=== PATIENT | female | born 1985 | race African-American/Black ===

== ENCOUNTER 2022-07-11 14:31 | Emergency (ER) | payer OTHER, SELFPAY ==
[2022-07-11 14:43] VITALS: BP 132/90; PULSE 123; RESP 16; TEMP 37.2; O2SAT 99
--- NOTE | 2022-07-11 14:57 | ED.GENADULT ---
HPI - General Adult General Chief complaint: Upper Respiratory Infection Stated complaint: Sinus/Sore Throat Source: patient Mode of arrival: ambulatory Limitations: no limitations History of Present Illness HPI narrative: Patient presents for evaluation of sick symptoms. She indicates last Sunday she had symptoms consistent with a common cold. She did have some sinus congestion, which has persisted, but improved. Yesterday she developed a sore throat which has progressively worsened. Her children both have sinus symptoms at the present time. No fever, chills, nausea, vomiting, diarrhea, shortness of breath. She has an occasional dry cough. She is taking Tylenol for symptoms. She does not smoke. She had COVID in January 2021. No additional complaints or concerns. Related Data Home Medications Medication Instructions Recorded Confirmed lisinopril 10 mg tablet 10 mg PO DAILY 07/11/22 07/11/22 vits no.126-ferrous fum tablet 07/11/22 28 mg iron-folic acid 800 mcg tablet (Classic ) Allergies Allergy/AdvReac Type Severity Reaction Status Date / Time iodine Allergy Anaphylaxis Verified 09/27/21 11:19 tree nut Allergy Itching Verified 07/11/22 14:43 Review of Systems Review of Systems: CONSTITUTIONAL: Denies fever, chills, or sweats. EYES: Denies visual changes, redness, or discharge. ENT: Reports sinus congestion and sore throat. Denies rhinorrhea or otalgia. CARDIOVASCULAR: Denies chest pain, palpitations, or edema. RESPIRATORY: Reports cough. Denies SOB GASTROINTESTINAL: Denies abdominal pain, nausea, vomiting, or diarrhea. GENITOURINARY: Denies dysuria or hematuria. SKIN: Denies rash or itching. MUSCULOSKELETAL: Denies back pain, joint pain, or myalgia. NEUROLOGIC: Denies headache, numbness, dizziness, or weakness. PSYCHIATRIC: Denies anxiety or depression. [facility] Past Medical History Medical History (Updated 07/11/22 @ 15:21 by ALO Vazquez, ALICE) Allergies Anxiety delivery delivered Surgical History Surgical History History of Family History Family History Father Hypertension Cancer of duodenum Mother Hypertension Lupus Sibling Depression Anxiety Grandparent Anxiety Depression Breast cancer Malignant neoplasm of prostate Social History Social History Smoking status: Never smoker Alcohol intake: never Substance use: never Living arrangements: with family Gender identity (if verbalized by the patient): Female Sexual Orientation (if Verbalized by the Patient): Straight or Heterosexual Spiritual care concerns: No Exam Narrative: GENERAL: Well-appearing, well-nourished, and in no acute distress. HEAD: Normocephalic, atraumatic. EYES: PERRLA and EOMI. ENT: Nares clear, no rhinorrhea or epistaxis. Mucous membranes moist. Mild posterior pharyngeal erythema without exudate. Uvula is midline. Bilateral TMs pearly resendiz nonbulging NECK: Supple. No adenopathy or masses. No carotid bruits or JVD CHEST: Clear to auscultation. No respiratory distress. No wheezes rales or rhonchi HEART: Regular rate and rhythm. No murmur heard. Normal peripheral pulses. ABDOMEN: Soft, nontender, nondistended, normal active bowel sounds. EXTREMITIES: Normal range of motion. No edema. SKIN: Warm, dry, no rash. NEURO: No focal deficits. Alert and oriented x3. PSYCH: Normal mood and affect. Course Course Emergency Course: This is a 37-year-old female who presented for evaluation of sick symptoms. COVID and strep were negative. Exam is consistent with viral URI. Zmrb-ghb-gbdqeck agents for symptom management. Follow with primary provider. Increase hydration. Go to the ER for worsening symptoms. Patient in agreement with plan of care
[2022-07-11 15:23] VITALS: PULSE 103
== END 2022-07-11 15:23 | disposition home or self-care (01) ==
PROVIDERS: Emergency Provider Nurse Practitioner
DX: J06.9 Acute upper respiratory infection, unspecified (principal); Z20.822 Contact with and (suspected) exposure to COVID-19; Z86.16 Personal history of COVID-19
CPT/HCPCS: 87081; 87147; 87426; 87880; 99213; C9803; G0463

== ENCOUNTER 2022-07-12 08:00 | Emergency (ER) | payer OTHER, SELFPAY ==
[2022-07-12 08:18] VITALS: BP 144/113; PULSE 136; RESP 16; TEMP 36.8; O2SAT 100
--- NOTE | 2022-07-12 08:38 | ED.URI ---
HPI - URI/Sore Throat General Chief Complaint: Upper Respiratory Infection Stated Complaint: SORE THROAT/HEADACHE/FEVER/NASAL CONGESTION Time Seen by Provider: 07/12/22 08:20 Source: patient Mode of arrival: ambulatory Limitations: no limitations History of Present Illness HPI Narrative: 37-year-old female presents with complaint of sore throat, fatigue, fever, nausea for the past 2-3 days. Was seen yesterday at [facility] and had a negative COVID and strep test. Patient states she is positive that she has strep as per throat has never hurt this bad before. Patient's is mostly talking for her due to her throat pain. All systems reviewed and negative except as noted above. Related Data Home Medications Medication Instructions Recorded Confirmed lisinopril 10 mg tablet 10 mg PO DAILY 07/11/22 07/11/22 vits no.126-ferrous fum tablet 07/11/22 28 mg iron-folic acid 800 mcg tablet (Classic ) Allergies Allergy/AdvReac Type Severity Reaction Status Date / Time iodine Allergy Anaphylaxis Verified 09/27/21 11:19 tree nut Allergy Itching Verified 07/11/22 14:43 Review of Systems Review of Systems: CONSTITUTIONAL: Reports fatigue, fever, chills, or sweats. EYES: Denies visual changes, redness, or discharge. ENT: Denies rhinorrhea, congestion. Reports sore throat. Denies otalgia. CARDIOVASCULAR: Denies chest pain, palpitations, or edema. RESPIRATORY: Denies cough or dyspnea. GASTROINTESTINAL: Denies abdominal pain, nausea, vomiting, or diarrhea. GENITOURINARY: Denies dysuria or hematuria. SKIN: Denies rash or itching. MUSCULOSKELETAL: Denies back pain, joint pain, or myalgia. NEUROLOGIC: Denies headache, numbness, or weakness. PSYCHIATRIC: Denies anxiety or depression. All other systems reviewed are negative, except as documented in HPI. [facility] Past Medical History Medical History (Updated 07/12/22 @ 08:43 by Sheba Delcid NP) Allergies Anxiety delivery delivered Surgical History Surgical History History of Family History Family History Father Hypertension Cancer of duodenum Mother Hypertension Lupus Sibling Depression Anxiety Grandparent Anxiety Depression Breast cancer Malignant neoplasm of prostate Social History Social History (Reviewed 07/11/22 @ 15:02 by Jose Eduardo Lewis, [facility], ) Smoking status: Never smoker Alcohol intake: never Substance use: never Living arrangements: with family Gender identity (if verbalized by the patient): Female Sexual Orientation (if Verbalized by the Patient): Straight or Heterosexual Spiritual care concerns: No Comments At time of signature, agree with nursing past medical, surgical, social and family history. There is no relevant family history pertinent to the presenting complaint. Exam Narrative: GENERAL: This is a well-nourished, well-developed patient, in no apparent distress. HEAD: normocephalic, atraumatic. EYES: PERRL. Sclera clear/white. Vision is grossly intact. EARS: External ears normal, auditory canals clear and without drainage, TMs normal without perforation. Hearing grossly intact. NOSE: External nose normal with no obvious nasal discharge, nares without redness, no rhinorrhea. THROAT: Mucous membranes moist, posterior pharynx erythematous and swollen. Uvula enlarged. tonsils 1+ bilaterally with exudates. NECK: Neck supple, tender with anterior cervical lymphadenopathy bilaterally. No masses or thyromegaly. CARDIOVASCULAR: Regular rate and rhythm without murmurs, gallops, or rubs. RESPIRATORY: Clear to auscultation. Breath sounds equal bilaterally. No wheezes, rales, or rhonchi. SKIN: warm, Dry, intact with no suspicious lesions or rash, good texture and turgor. NEURO: awake, alert, and oriented to person, place and time. Ther
== END 2022-07-12 08:36 | disposition home or self-care (01) ==
PROVIDERS: Emergency Provider Nurse Practitioner Family
DX: J02.0 Streptococcal pharyngitis (principal); I10 Essential (primary) hypertension
CPT/HCPCS: 87804; 87880; 99213; G0463

== ENCOUNTER 2022-11-16 11:29 | Emergency (ER) | payer OTHER, SELFPAY ==
--- NOTE | 2022-11-16 11:40 | ED.EYEPROB ---
HPI - Eye Problem General Chief complaint: Eye Problems Stated complaint: EYE REDNESS Source: patient Mode of arrival: ambulatory Limitations: no limitations History of Present Illness HPI Narrative: 37 y/o female presented for c/o bilateral eye swelling, redness, pain and drainage. States her was diagnosed with pink eye yesterday. Reports feeling itching to the eyes yesterday, and by the night she had bilateral eye pain for which she took ibuprofen. States the eyes were matted shut this morning with large amount of thick green drainage. Patient provided pictures. Patient also reports nasal congestion, body aches, and mild sore throat. States she had covid in September. chief complaint: eye pain Related Data Home Medications Medication Instructions Recorded Confirmed escitalopram oxalate 10 mg tablet 10 mg PO DAILY 07/12/22 11/16/22 Allergies Allergy/AdvReac Type Severity Reaction Status Date / Time iodine Allergy Anaphylaxis Verified 11/16/22 11:36 tree nut Allergy Itching Verified 11/16/22 11:36 Review of Systems Review of Systems: CONSTITUTIONAL: Reports body aches, denies fever, chills EYES:Endorses swelling, redness and pain to eyes; denies FB sensation, photophobia, visual changes ENT: Reports rhinorrhea, congestion, sore throat CARDIOVASCULAR: Denies chest pain, palpitations RESPIRATORY: Denies cough or dyspnea. GASTROINTESTINAL: Denies abdominal pain, nausea, vomiting, or diarrhea. SKIN: Denies rash, itching, or wounds. MUSCULOSKELETAL: Denies back pain, joint pain, or myalgia. NEUROLOGIC: Denies headache, numbness, tingling, or weakness. All systems reviewed & are unremarkable except as noted in HPI and below PMFSH Past Medical History Medical History Allergies Anxiety delivery delivered Surgical History Surgical History History of Family History Family History Father Hypertension Cancer of duodenum Mother Hypertension Lupus Sibling Depression Anxiety Grandparent Anxiety Depression Breast cancer Malignant neoplasm of prostate Social History Social History Smoking status: Never smoker Alcohol intake: never Substance use: never Living arrangements: with family Gender identity (if verbalized by the patient): Female Sexual Orientation (if Verbalized by the Patient): Straight or Heterosexual Spiritual care concerns: No Comments At time of signature, I have reviewed and agree with nursing past medical, surgical, social and family history unless otherwise noted. Please see nursing chart for further information. There is no relevant family history pertinent to the presenting complaint Exam Narrative: GENERAL: Well-appearing HEAD: Normocephalic, atraumatic. EYES: severe bilateral conjunctival injection, moderate upper eye lid swelling L>R, bilateral purulent drainage; PERRLA, EOMI. Lid eversion shows no FB. ENT: Mucous membranes pink and moist. No rhinorrhea. TMs normal bilaterally. Throat normal. Uvula midline. CHEST: Clear to auscultation. HEART: Tachycardic Regular rhythm. ABDOMEN: Soft, nontender, nondistended SKIN: Warm, dry, no rash. Normal skin turgor. NEURO: No focal deficits. Alert and oriented x3 PSYCH: Normal affect. Course Course Emergency Course: Patient is aware of diagnosis, understands and agrees to treatment plan. Anticipatory guidance given. Patient agrees to follow-up as directed and is aware of reasons to seek care at the emergency department. Portions of this record may have been created with voice recognition software Level of Care: Express Care Visit Vital Signs Vital signs: Vital Signs Temperature 98 F 11/16/22 11:46 Pulse Rate 109 H 11/16/22 11:46 Resp
[2022-11-16 11:46] VITALS: BP 113/75; PULSE 109; RESP 16; TEMP 36.6; O2SAT 99
== END 2022-11-16 12:18 | disposition home or self-care (01) ==
PROVIDERS: Emergency Provider Nurse Practitioner Family; PCP Internal Medicine
DX: H10.9 Unspecified conjunctivitis (principal)
CPT/HCPCS: 87081; 87804; 87880; 99203; G0463

== ENCOUNTER 2022-11-27 08:22 | Emergency (ER) | payer OTHER, SELFPAY ==
--- NOTE | 2022-11-27 08:27 | ED.URI ---
HPI - URI/Sore Throat General Chief Complaint: Upper Respiratory Infection Stated Complaint: Cold Symptoms Time Seen by Provider: 11/27/22 08:28 Source: patient Mode of arrival: ambulatory Limitations: no limitations History of Present Illness HPI Narrative: Nicholas is a 37-year-old female patient presenting to the clinic today with complaints of cough and runny nose x 1 week. She reports she has been waking up with the sore throat but this has improved throughout the day. Having a lot nasal drainage going the back of her throat. Does have some yellow nasal drainage times otherwise is clear. MD elicited complaint: sore throat and nasal congestion Related Data Home Medications Medication Instructions Recorded Confirmed escitalopram oxalate 10 mg tablet 10 mg PO DAILY 07/12/22 11/27/22 Allergies Allergy/AdvReac Type Severity Reaction Status Date / Time iodine Allergy Anaphylaxis Verified 11/27/22 08:30 tree nut Allergy Itching Verified 11/27/22 08:30 Review of Systems Review of Systems: Pertinent positives per HPI. Patient denies any fever, chills, rash, headache, visual changes, dizziness, cough, shortness of breath, chest pain, palpitations, nausea, vomiting, diarrhea, constipation, abdominal pain, or any urinary issues. [facility] Past Medical History Medical History Allergies Anxiety delivery delivered Surgical History Surgical History History of Family History Family History Father Hypertension Cancer of duodenum Mother Hypertension Lupus Sibling Depression Anxiety Grandparent Anxiety Depression Breast cancer Malignant neoplasm of prostate Social History Social History Smoking status: Never smoker Alcohol intake: never Substance use: never Living arrangements: with family Gender identity (if verbalized by the patient): Female Sexual Orientation (if Verbalized by the Patient): Straight or Heterosexual Spiritual care concerns: No Comments At the time of my signature, I reviewed and agree with the nursing past medical, surgical, social, and family history. There is no relevant family history pertinent to the patient complaint. Exam Narrative: General: Well-developed, well nourished, in no apparent distress Head: Normocephalic, atraumatic Eyes: Pupils equally round and reactive to light bilaterally, EOM intact, sclera and conjunctive clear, no discharge, lids normal Ears: TMs intact and clear, ear canals clear, no drainage, grossly hearing normal. Nose: Nares patent, clear nasal discharge,moderate inflammation to the right nare, no sinus tenderness. Mouth: Oral pharynx without lesions or masses, good dentition, MMM. Neck: Supple, trachea midline, no enlargement of anterior or posterior cervical nodes, no thyroid masses or goiter palpable. Cardio: Regular rate and rhythm, s1 and s2 normal, no murmur appreciated. Resp: Clear to auscultation bilaterally, no rhonchi, rales, wheezing or rubs Course Course Emergency Course: Portions of this record may have been created with voice recognition software. Level of Care: Express Care Visit Vital Signs Vital signs: Vital signs reviewed MDM - URI/Sore Throat MDM Narrative Medical decision making narrative: At the time of visit patient is resting comfortably on the exam table. I suspect patient has URI. Recommend follow-up with her PCP this week if symptoms persist as she may need treatment for bacterial rhinosinusitis but at this point in time she is 7 days into URI symptoms. She denies any fever chills. Will place patient on prednisone. Supportive measures were discussed with the patient she voiced understanding discharge instructions and agrees to treatment pl
[2022-11-27 08:33] VITALS: BP 137/83; PULSE 97; RESP 16; TEMP 37; O2SAT 100
== END 2022-11-27 08:42 | disposition home or self-care (01) ==
PROVIDERS: Emergency Provider Nurse Practitioner Family; PCP Internal Medicine
DX: J06.9 Acute upper respiratory infection, unspecified (principal); F41.9 Anxiety disorder, unspecified
CPT/HCPCS: 99213; G0463

== ENCOUNTER 2023-04-13 13:17 | Emergency (ER) | payer OTHER, SELFPAY ==
--- NOTE | 2023-04-13 13:29 | ED.URI ---
HPI - URI/Sore Throat General Chief Complaint: Upper Respiratory Infection Stated Complaint: Congestion/Sore Throat/Chills Time Seen by Provider: 04/13/23 13:29 Source: patient, RN notes reviewed and old records reviewed Mode of arrival: ambulatory Limitations: no limitations History of Present Illness HPI Narrative: 37-year-old female patient presents to express care with complaint of throat pain, congestion since yesterday. Patient endorses that generalized body aches and chills started this morning while at work. Patient endorses history of anxiety, white coat syndrome, and c section x2. patient denies allergies. Endorses taking Lexapro for anxiety. Related Data Home Medications Medication Instructions Recorded Confirmed escitalopram oxalate 10 mg tablet 10 mg PO DAILY 07/12/22 11/27/22 Allergies Allergy/AdvReac Type Severity Reaction Status Date / Time iodine Allergy Anaphylaxis Verified 11/27/22 08:30 tree nut Allergy Itching Verified 11/27/22 08:30 Review of Systems Review of Systems: All systems reviewed & are unremarkable except as noted in HPI and below Constitutional: Constitutional: Reports body ache(s) and Reports chills Eyes: Eyes: Reports no additional eye complaints ENT: Reports system reviewed and no additional complaints, except as documented, Denies headache(s), Reports nasal congestion and Reports sore throat Cardiovascular: Cardiovascular: Reports no additional cardiovascular complaints, Denies chest pain and Denies dyspnea Respiratory: Respiratory: Reports no additional respiratory complaints, Denies cough and Denies dyspnea Musculoskeletal: Musculoskeletal: Reports no additional musculoskeletal complaints and Reports myalgias Neurologic: Reports system reviewed and no additional complaints, except as documented Psychiatric: Psychiatric: Reports no additional psychiatric complaints [facility] Past Medical History Medical History Allergies Anxiety delivery delivered Surgical History Surgical History History of Family History Family History Father Hypertension Cancer of duodenum Mother Hypertension Lupus Sibling Depression Anxiety Grandparent Anxiety Depression Breast cancer Malignant neoplasm of prostate Social History Social History Smoking status: Never smoker Alcohol intake: never Substance use: never Living arrangements: with family Gender identity (if verbalized by the patient): Female Sexual Orientation (if Verbalized by the Patient): Straight or Heterosexual Spiritual care concerns: No Comments At the time of my signature, I reviewed and agree with the nursing past medical, surgical, social, and family history. There is no relevant family history pertinent to the patient complaint. Exam Const: General: cooperative, healthy appearing, no acute distress, well developed, alert, awake, anxious, ill appearing, uncomfortable and well nourished Nutritional Appearance: well nourished Orientation/consciousness: patient oriented x3 Limitations: no limitations HENMT: Head: normal to inspection Ears: external ears normal Face/Nose/Sinus: Normal external nose present, Abnormal mucous membranes and turbinates present boggy and erythematous, normal facial exam, No erythema and No edema Face and sinus: normal facial exam, no erythema and no edema Mouth: Yes Normal oral and palatal mucosa present Teeth and gingiva: dentition normal and gingiva normal Throat: tonsils normal, uvula midline and posterior oropharynx abnormal erythema Eyes: General: appearance normal, both eyes and all related structures Neck: Neck: normal visual inspection, full ROM and no meningeal signs Lymphatic: no lymphadenopathy n
[2023-04-13 13:35] VITALS: BP 143/101; PULSE 112; RESP 20; TEMP 37.8; O2SAT 98
== END 2023-04-13 13:57 | disposition home or self-care (01) ==
PROVIDERS: Emergency Provider Nurse Practitioner Family; PCP Internal Medicine
DX: J10.1 Influenza due to other identified influenza virus with other respiratory manifestations (principal); Z20.822 Contact with and (suspected) exposure to COVID-19; F41.9 Anxiety disorder, unspecified
CPT/HCPCS: 87081; 87426; 87804; 87880; 99213; G0463

== ENCOUNTER 2023-09-25 14:52 | Outpatient (CLI) | payer BC, SELFPAY ==
--- NOTE | ~2023-09-25 | MM_ITS ---
EXAMINATION: MM screening fransico BI w jeovany HISTORY: Screening TECHNIQUE: Craniocaudal and mediolateral oblique 3-D tomosynthesis images were obtained and synthetic 2-D images were generated. CAD analysis was submitted and interpreted. COMPARISON: No prior mammogram is available for comparison at this institution. BREAST PARENCHYMAL COMPOSITION: Dense: The breasts are extremely dense, which lowers the sensitivity of mammography. FINDINGS: There is no evidence of suspicious mass, calcification, or architectural distortion to sugg est malignancy in either breast. There has been no suspicious interval change. IMPRESSION: 1. No mammographic evidence of malignancy. 2. Recommend routine screening mammography in one year. BI-RADS Category 1: Negative Reviewed, dictated and finalized at location B.
== END 2023-09-25 14:53 ==
PROVIDERS: PCP Internal Medicine; Visit Provider Internal Medicine
DX: Z12.31 Encounter for screening mammogram for malignant neoplasm of breast (principal)
CPT/HCPCS: 77063; 77067

== ENCOUNTER 2024-05-19 07:40 | Emergency (ER) | payer BC, SELFPAY ==
[2024-05-19] VITALS (16 sets, daily range): BP systolic 125–146; BP diastolic 77–97; PULSE 72–107; RESP 13–19; TEMP 36.8; O2SAT 97–100
--- NOTE | ~2024-05-19 | XR_ITS ---
EXAMINATION: XR chest 2V DATE: 05/19/2024 10:31 INDICATION: Chest pain and congestion TECHNIQUE: PA and lateral views of the chest were obtained. COMPARISON: None FINDINGS: The lungs are clear with no focal airspace opacities, pulmonary edema, pleural effusion or pneumothor ax. The cardiomediastinal silhouette is normal. Mild thoracic spondylosis with minimal likely chronic anterior wedging of a few mid thoracic vertebral bodies. IMPRESSION: 1. No acute cardiopulmonary disease. Reviewed, dictated and finalized at location B.
--- OUTSIDE RECORDS SUMMARY | 2024-05-19 07:44 | XMS_ITS | Clinical Summary ---
Author Organization [facility] Address [address] [place] [address] Care Team Providers Care Animal Care Assistant Name Role Phone Gaby Zuñiga MD Primary Care Provider [phone] Source Comments [facility],non-owned Affiliates and Associated Physician Practices is amultiple site organization consisting of ambulatory clinics and hospital sitesin [place], [place], [place] and [place]. This disclosure is being madepursuant to the Care Everywhere program and may not contain all information available regarding this patient. Last updated 17.[facility] Allergies No known active allergies Medications * Be aware that medications may not be up to date on this document. Alwaysverify current medications with the patient. Medication Sig Dispensed Refills Start Date End Date Status escitalopram (Lexapro) 10 MG tablet Take 1 (one) tablet by mouth once daily 05/01/2023 Active Multiple Vitamins-Minerals (Oncovite) TABS Take 1 (one) tablet by mouth once daily Active Social History Tobacco Use Types Packs/Day Years Used Date Smoking Tobacco: Never Assessed Sex and Gender Information Value Date Recorded Sex Assigned at Not on file Gender Identity Not on file Sexual Orientation Not on file Last Filed Vital Signs Vital Sign Reading Time Taken Comments Blood Pressure 124/79 09/26/2023 1:57 PM CDT Pulse 84 09/26/2023 1:57 PM CDT Temperature - - Respiratory Rate - - Oxygen Saturation 97% 09/26/2023 1:57 PM CDT Inhaled Oxygen Concentration - - Weight 74.4 kg (164 lb) 09/26/2023 1:57 PM CDT Height - - Body Mass Index - - Plan of Treatment Health Maintenance Due Date Last Done Comments HIV SCREENING 2000 DTAP/TDAP/TD VACCINES (1 - Tdap) 2004 HEPATITIS B VACCINE (1 of 3 - 19+ 3-dose series) 2004 PAP SMEAR 06/18/2023 06/17/2020, 01/08/2018 COVID-19 VACCINE ( - season) 2023 01/14/2021, 04/17/2020, 03/22/2020 INFLUENZA VACCINE (#1) 2023 , 11/06/2020, 12/02/2019, Additional history exists DEPRESSION SCREENING 02/20/2024 ZOSTER VACCINE (1 of 2) 04/20/2035 HEPATITIS C SCREENING Completed 09/26/2022 HIB VACCINE Aged Out No longer eligi ble based on patient's age to complete this topic HPV VACCINE Aged Out No longer eligi ble based on patient's age to complete this topic MENINGOCOCCAL (Group B) VACCINE SHARED DECISION-MAKING Aged Out No longer eligible based on patient's age to complete this topic MENINGOCOCCAL GROUPS A/C/Y/W VACCINE Aged Out No longer eligible based on patient's age to complete this topic PNEUMOCOCCAL VACCINE Aged Out No long er eligible based on patient's age to complete this topic Care Teams Animal Care Assistant Relationship Specialty Start Date End Date Gaby Zuñiga MD [address] [place] [address] PCP - General Internal Medicine 09/26/23
--- OUTSIDE RECORDS SUMMARY | 2024-05-19 07:44 | XMS_ITS | Encounter Summary ---
Author Organization [facility] Address Formerly [facility] [place] [address] Care Team Providers Care Automobile Washer Steam Name Role Phone Gaby Zuñiga MD Primary Care Provider [phone] Encounter Details Date Type Department Care Team (Late Contact Info) Description 03/05/2024 MyChart Message Enc [facility] [place] [facility] - [address] [place] [address] Gaby Zuñiga MD [address] [place] [address] [address] [place], [place] [id number] Increase libido Social History Tobacco Use Types Packs/Day Years Used Date Smoking Tobacco: Never Smokeless Tobacco: Never Comments:Counseled by Dr Pamela pastor. Alcohol Use Standard Drinks/Week Comments Not Currently 0 (1 standard drink = 0.6 oz pur e alcohol) PHQ-2 Answer Date Recorded Patient Health Questionnaire-2 Score 0 10/01/2023 Comments No Sex and Gender Information Value Date Recorded Sex Assigned at Female 04/11/2024 3:48 PM PATIENT OBSERVATION ASSISTANT Legal Sex Female 10:25 AM CDT Gender Identity Female 04/11/2024 3:48 PM PATIENT OBSERVATION ASSISTANT Sexual Orientation Straight 04/11/2024 3: 48 PM PATIENT OBSERVATION ASSISTANT documented as of this encounter Plan of Treatment Upcoming Encounters Date Type Department Care Team (Late Contact Info) Description 10/10/2024 3:40 PM CDT Office Visit [facility] - [place] [address] [place] [address] [address] [place], [place] [id number] Gaby Zuñiga MD [address] [address] documented as of this encounter Visit Diagnoses Not on filedocumented in this encounter Additional Health Concerns Assessment Noted Time PHQ-9 Depression Total Score: 0 10/01/19 24 8:36 AM CDT documented as of this encounter Care Teams Automobile Washer Steam Relationship Specialty Start Date End Date Gaby Zuñiga MD [address] [address] PCP - General INTERNAL MEDICINE 07/11/22 documented as of this encounter
--- OUTSIDE RECORDS SUMMARY | 2024-05-19 07:44 | XMS_ITS | Encounter Summary ---
Author Organization [facility] Address [facility] [place] [address] Care Team Providers Care Ways Operator Name Role Phone Gaby Zuñiga MD Primary Care Provider [phone] Encounter Details Date Type Department Care Team (Late Contact Info) Description 04/29/2024 [facility] - [address] [place] [address] Gaby Zuñiga MD [address] [place] [address] 157 [place] [address] Hard stool Social History Tobacco Use Types Packs/Day Years Used Date Smoking Tobacco: Never Smokeless Tobacco: Never Comments:Counseled by Dr Pamela pastor. Alcohol Use Standard Drinks/Week Comments Not Currently 0 (1 standard drink = 0.6 oz pur e alcohol) PHQ-2 Answer Date Recorded Patient Health Questionnaire-2 Score 0 04/11/2024 Comments No Sex and Gender Information Value Date Recorded Sex Assigned at Female 04/11/2024 3:48 PM INTERVENTIONAL RADIOLOGY TECHNOLOGIST Legal Sex Female 10:25 AM CDT Gender Identity Female 04/11/2024 3:48 PM INTERVENTIONAL RADIOLOGY TECHNOLOGIST Sexual Orientation Straight 04/11/2024 3: 48 PM INTERVENTIONAL RADIOLOGY TECHNOLOGIST documented as of this encounter Plan of Treatment Upcoming Encounters Date Type Department Care Team (Late Contact Info) Description 10/10/2024 3:40 PM CDT Office Visit [facility] Medical [facility] Multispecial[facility] - [address] [place] [address] Gaby Zuñiga MD [address] [address] documented as of this encounter Visit Diagnoses Not on filedocumented in this encounter Additional Health Concerns Assessment Noted Time PHQ-9 Depression Total Score: 2 04/11/19 25 4:23 PM INTERVENTIONAL RADIOLOGY TECHNOLOGIST documented as of this encounter Care Teams Ways Operator Relationship Specialty Start Date End Date Gaby Zuñiga MD [address] [address] PCP - General INTERNAL MEDICINE 07/11/22 documented as of this encounter
--- OUTSIDE RECORDS SUMMARY | 2024-05-19 07:44 | XMS_ITS | Continuity of Care Document ---
Author Organization [facility]. If a dditional information is needed, contact Health Information Management at [phone] Address [address] [place] [address] Phone Care Team Providers Care Rail Operations Controller Name Role Phone Unavailable Unavailable Unavailable Unavailable Unavailable Unavailable Unavailable Unavailable Unavailable Unavailable Unavailable Unavailable Unavailable Unavailable Unavailable Unavailable Unavailable Unavailable Unavailable Unavailable Unavailable Problems COVID-19 Onset:04-Nov-2023 Dami Juarez NP Viral disease Onset:04-Nov-2023 Dami Juarez NP Allergies and Adverse Reactions IV Dye, Iodine Containing Co ntrast(Allergy) Onset: 04-Nov-2023 Reaction:ANAPHYLAXIS Medications acetaminophen 325 MG Oral Tablet;650 MILLIGRAM X1ED Quantity:2 Flaum Rodrick B DO Start:32-Isy-5597Wmf:2023 Comments:[id number] Administration Instructions:Take 1 hour before or 2 hours after ameal due to decreased absorption and delay in painrelief. Avoid alcohol.ACETAMINOPHEN SHOULD NOT EXCEED 4 GM/ 24 HR ibuprofen 600 MG Oral Tablet;600 MILLIGRAM X1ED Quantity:1 Flaum Rodrick B DO Start:62-Wbq-2032Txj:2023 Comments:[id number] Administration Instructions:DO NOT CRUSH, CHEW, OR CUTGIVE WITH FOOD sodium chloride 9 MG/ML Injectable Solution;[id number] Flaum Rodrick B DO Start:21-Mda-0776Nnq:2023 Comments:[id number] Procedures CHEST PORTABLEResult:RADIOLOGY DEPARTMENT Name: [facility] - IMAGING Phys: Rodrick Gonzalez DO [address] : 1985 Age: 38 Sex: Cedric [place] [address] Acct: [id number] Loc: [facility] PHONE #: [phone] Exam Date: 11/04/2023 Status: REG ER FAX #: [phone] Radiology No: [id number] Unit No: [id number] EXAMS: [id number] CHEST PORTABLE INDICATION: COUGH; FLU LIKE SYMPTOMS/COVID+ EXAMINATION/TECHNIQUE: X-RAY - XR Chest 1 View COMPARISON: FINDINGS: LINES/DEVICES: None. LUNGS: No consolidation, edema or effusion. No pneumothorax. MEDIASTINUM AND CARDIOVASCULAR STRUCTURES: Cardiac silhouette not enlarged. Central airways and mediastinal contour are unremarkable. BONES AND SOFT TISSUES: Unremarkable. IMPRESSION: No radiographic evidence of acute cardiopulmonary disease. at 1423 Reported and signed by: Maurizio Hickey MD CC: Rodrick Gonzalez DO Dictated Date/Time: 11/04/2023 (1422)Technologist: Denton Early RT(R) Transcribed Date/Time: 11/04/2023 (1422)Aircraft Cylinder Mechanic: MICHELLE Printed Date/Time: 11/04/2023 (1423) BATCH NO: N/A PAGE 1 Signed Report Date:04-Nov-2023 Status:Completed Social History Smoking Status Tobacco smoking consumption unknown Recorded: Results TROPI HIGH SENSITIVITY Ordered On:04-Nov-2023 13:58 TROPI HIGH BXNLKXPMHGH4qd/L Ra nge:0-54ng/L Comments:99th percentileFemale: <54 ng/L Male: <78 ng/LPer the 4th universal definition of Myocardial infarction(IL), IL is defined as the presence of acute myocardialinjury (i.e., detection of a rise and/or fall of troponinvalues with at least 1 troponin > 99th percentile UpperReference Limit) in the setting of clinical evidence ofacute myocardial ischemia such as ischemic symptoms or newischemic EKG changes.High-sensitivity troponin results should be interpreted inconjunction with other diagnostic tests and clinicalinformation. CBC Ordered On:04-Nov-2023 12:45 TVNPVLNFQD83.3%(Normal) Range: 34.1%-44.9% HPAIJZWVFL65.1g/dL(Normal) Range :11.2g/dL-15.7g/dL MEAN CELL HGB26.4pg(Normal) Rang e:25.6pg-32.2pg MEAN CELL HGB MATJVFZNNSFNK87.4g/dL(Normal ) Range:32.2g/dL-35.5g/dL MEAN CELL OSNWTK23.3fL(Normal) Range:79.4fL-94.8fL MEAN PLATELET QMQNUN93.8fL(Normal) Range:9.4fL-12.3fL PLATELET KGGLH840{10_3/uL}(Normal) Range:150{10_3/uL}-400{10_3/uL } RED BLOOD CELL4.59{10_6/uL}(Normal) Range:3.93{10_6/uL}-5.22{10_6/ uL} RED CELL DISTRIBUTIO N WIDTH13.9%(Normal) Range:11.7%-14.4% WHITE BLOOD CELL10.6{10_3/uL}(Normal) Range:4.2{10_3/uL}-11.1{10_3/u L} COMPREHENSIVE METABOLIC PANEL Ordered On:04-Nov-2023 12:58 ALBUMIN3.9g/dL(Normal) Range:3 .4g/dL-5g/dL ALKALINE PHOSPHATASE WTFGO71K/L(Normal) Range:45U/L-117U/L SGPT/ALT26U/L(Normal) Range:12U/ L-78U/L SGOT/AST17U/L(Normal) Range:15U/ L-37U/L BILIRUBIN TOTAL0.4mg/dL(Normal) Range:0.2mg/dL-1mg/dL BLOOD UREA FUTWQUTQ1yk/dL(Normal) Range:7mg/dL-18mg/dL CALCIUM8.3mg/dL(Low) Range:8.7mg /dL-10.4mg/dL KNHJNSOI326akon/L(High) Range:98 mmol/L-107mmol/L CARBON CMHQIIY74plug/L(Normal) Range:21mmol/L-32mmol/L CREATININE0.70mg/dL(Normal) Rang e:0.55mg/dL-1.2mg/dL eGFR>90 Range:90-0 Comments:The eGFR is calculated using the 2020 CKD-EPI Cr equation,which includes serum Cr, age, and sex but does not include arace coefficient. The National Kidney Foundation recommendsthis formula for calculating eGFR in adults. GFR will notcalculate if sex is unknown or patient age is <18 years. Ref range: >/=90mL/min/1.73m2 MCNCRJE784kw/dL(High) Range:74mg /dL-106mg/dL POTASSIUM3.5mmol/L(Normal) Range :3.5mmol/L-5.1mmol/L ZYEWMW408kprg/L(Normal) Range:13 6mmol/L-145mmol/L TOTAL PROTEIN7.8g/dL(Normal) Ran ge:6.4g/dL-8.2g/dL A/G RATIO1.0{ratio}(Normal) Rang e:1{ratio}-2.3{ratio} CORRECTED CALCIUM8.4mg/dL(Low) Range:8.5mg/dL-10.1mg/dL Comments:Calcium corrected for Albumin. ANION GAP<2mmol/L(Low) Range:5mm ol/L-15mmol/L GLOBULIN3.9g/dL(High) Range:2g/d L-3.5g/dL MAGNESIUM Ordered On:04-Nov-2023 12:58 MAGNESIUM1.8mg/dL(Normal) Rang e:1.6mg/dL-2.6mg/dL TROPI HIGH SENSITIVITY Ordered On:04-Nov-2023 12:58 TROPI HIGH SVTPGYEYDRP2gb/L Ra nge:0-54ng/L Comments:99th percentileFemale: <54 ng/L Male: <78 ng/LPer the 4th universal definition of Myocardial infarction(IL), IL is defined as the presence of acute myocardialinjury (i.e., detection of a rise and/or fall of troponinvalues with at least 1 troponin > 99th percentile UpperReference Limit) in the setting of clinical evidence ofacute myocardial ischemia such as ischemic symptoms or newischemic EKG changes.High-sensitivity troponin results should be interpreted inconjunction with other diagnostic tests and clinicalinformation. Vital Signs 04-Nov-2023 14:05 Pulse98 Comments:98 04-Nov-2023 14:00 Respiratory Rate19 Comments:19 O2 SAT95% Comments:95 BP Gargeeow168dn[Hg] Comments:14 5 BP Qtbfgmcaa50sv[Hg] Comments:86 04-Nov-2023 13:58 BP Uedkjxmg265ra[Hg] Comments:13 0 BP Oknbubemb86sb[Hg] Comments:87 04-Nov-2023 13:55 Iqspz022 Comments:111 Respiratory Rate19 Comments:19 O2 SAT98% Comments:98 04-Nov-2023 13:01 BP Aqdumdbx425gp[Hg] Comments:13 0 BP Rukfddbaa607ei[Hg] Comments:1 07 04-Nov-2023 13:00 Oexkp459 Comments:115 O2 SAT98% Comments:98 04-Nov-2023 12:30 Emnac448 Comments:117 Respiratory Rate14 Comments:14 O2 SAT99% Comments:99 04-Nov-2023 12:25 Naeuf373 Comments:116 Respiratory Rate18 Comments:18 O2 SAT99% Comments:99 04-Nov-2023 12:21 BP Kicqcnss563ac[Hg] Comments:17 3 BP Erddnvbwy16je[Hg] Comments:91 04-Nov-2023 12:20 Lcyjc423 Comments:123 O2 XLV446% Comments:100 04-Nov-2023 12:09 Obehzhcatsz41.5f Comments:98.5 Wxtyj487 Comments:135 Respiratory Rate18 Comments:18 O2 SAT98% Comments:98 BP Vunmnnec448zo[Hg] Comments:17 3 BP Mpwteyyjw77dz[Hg] Comments:91 Height6.6465433[ft_us] Comments: 6 Mejawm29.5kg Comments:75.500 04-Nov-2023 12:09 BMI20.2kg/m2 Comments:20.2 Encounters Emergency Encounter Reason:FLU LIKE SYMPTOMS/COVID+ Encounter Diagnosis:COVID-19 04-Nov-2023 12:52Qu26-Kvy-3162 14:39 [facility] Discharge Disposition:Discharged to home or self care (routine discharge) Dami Juarez [place]-18-Ipv04-Nov-2023 [facility] ([facility])EMERGENCY PROVIDER REPORTREPORT#:[id number] REPORT STATUS: SignedDATE:11/04/23 TIME: 1238PATIENT: KEVIN WOODARD UNIT #: [id number]#: [id number] ROOM/BED:: 85 AGE: 38 SEX: F PCP PHYS: Undefined ProviderSERVICE AUTHOR: Lowell Lomax NPREP SRV REP SRV TM: 1238 ALL edits or amendments must be made on the electronic/computer document. LOWELL LOMAX OPERATIONS CONSULTANT 11/04/23 1238:EVH-Cen-Nhbd IllnessFree Text HPI NotesFree Text HPI NotesPATIENT IS ALERT ORIENTED 38-YEAR-OLD FEMALE HERE FROM OUT OF TOWN COMPLAININGOF FLU-LIKE SYMPTOMS WITH SOME PALPITATIONS. RECENTLY DIAGNOSED WITH COVID-19.DENIES CHEST PAIN LIGHTHEADEDNESS OR DIZZINESS. HERE FOR EVALUATION TREATMENTGeneralConfirmed Patient YesPatient Type New patientInitial Greet Date/Time 11/04/23 1210Assumed Care at Time 1238 Date 11/04/23PresentationChief Complaint Chills, Nasal congestion, Upper resp infectionHx Obtained From PatientReview of SystemsFree Text ROS NotesFree Text ROS NotesPOSITIVE REVIEW OF SYSTEMS ARE IN BOLD TEXT, OTHERWISE ALL DOCUMENTED BELOW ARENEGATIVE:CONSTITUTIONAL: CHILLS, FEVER.EYES: BLURRY VISION, DIPLOPIA.EARS/NOSE/THROAT: EARACHE, SORE THROAT.RESPIRATORY: COUGH, SHORTNESS OF BREATH.CARDIOVASCULAR: CHEST PAIN, PALPITATIONS.GI: ABDOMINAL PAIN, NAUSEA, VOMITING, DIARRHEA.: DYSURIA, FREQUENT URINATION.MUSCULOSKELETAL: EXTREMITY PAIN, EXTREMITY SWELLING.SKIN: RASH, SWELLING.ALLERGY/IMMUN: ITCHING, SNEEZING.NEUROLOGIC: DIZZINESS, HEADACHE.Past Medical History - AdultStated Complaint FLU LIKE SYMPTOMS/COVID+AllergiesCoded Allergies:Iodinated Contrast Media (Severe, ANAPHYLAXIS 11/04/23)Physical ExamVital SignsVital SignsFirst Documented: Result Date Time Pulse Ox 98 11/03 1209 B/P 173/91 11/03 1209 B/P Mean 118 11/03 1209 O2 Delivery Room air 11/03 1209 Temp 98.5 11/03 1209 Pulse 135 11/03 1209 Resp 18 11/03 1209Last Documented: Result Date Time Pulse 98 11/03 1405 Pulse Ox 95 11/03 1400 B/P 145/86 11/03 1400 B/P Mean 110 11/03 1400 Resp 19 11/03 1400 O2 Delivery Room air 11/03 1209 Temp 98.5 11/03 1209Review of Vital Signs ReviewedFree Text PE NotesFree Text PE NotesGENERAL - AWAKE, ALERT, COOPERATIVE, NONTOXIC APPEARINGHEAD/FACE - NORMOCEPHALIC, ATRAUMATIC. NO FACIAL ASYMMETRY.EYES - PERRL, EOMIEARS, NOSE, AND THROAT -TRACHEA MIDLINENECK - SUPPLE, FULL ROM. NO JVDRESP/CHEST - BREATH SOUNDS CTA BILATERALLY, NO RESPIRATORY DISTRESS. NO WHEEZING, RALES, OR RHONCHI. NO CHEST WALL TENDERNESS TO PALPATIONCARDIOVASCULAR - HEART SOUNDS NORMAL, ELEVATED HEART RATE ON ARRIVALGASTROINTESTINAL - ABDOMEN SOFT, NON-TENDER, NON-DISTENDED. NO GUARDING, NOREBOUND, BS NORMOACTIVE. NO PULSATILE MASSBACK - FULL RANGE OF MOTION, NO SPINOUS PROCESS TENDERNESS TO PALPATION. NO CVATENDERNESSUPPER EXTREMITIES - FROM OF BUE, STRENGTH 5/5, NO DEFORMITY. NORMAL CAPILLARYREFILL.LOWER EXTREMITIES - FROM OF BLE. NO SWELLING, 2+ BILATERAL PEDAL PULSES,SENSATION INTACTSKIN - NORMAL FOR ETHNICITY. WARM, DRY, WITH NO RASHES OR LESIONSNEUROLOGIC - AAOX3, SPEECH CLEAR. SENSATION INTACT. NO FOCAL NEUROLOGICALDEFICITS. MOVES ALL EXTREMITIES SPONTANEOUSLYInterpretation DiagnosticsLab Results InterpretationResultsLaboratory Tests11/04/23 1230:[Embedded Image Not Available]Laboratory Tests: 11/03 11/03 11/03 1318 1230 1230 Chemistry Sodium (136 - 145 mmol/L) 138 Potassium (3.5 - 5.1 mmol/L) 3.5 Chloride (98 - 107 mmol/L) 108 H Carbon Dioxide (21 - 32 mmol/L) 29 Anion Gap (5 - 15 MMOL/L) <2 L BUN (7 - 18 mg/dL) 8 Creatinine (0.55 - 1.2 mg/dL) 0.70 Est GFR (CKD-EPI 2020) (>90.0) >90 Glucose (74 - 106 mg/dL) 107 H Calcium (8.7 - 10.4 mg/dL) 8.3 L Calcium Adj for Albumin (8.5 - 10.1 mg/dL) 8.4 L Magnesium (1.6 - 2.6 mg/dL) 1.8 Total Bilirubin (0.2 - 1.0 mg/dL) 0.4 AST (15 - 37 Units/L) 17 ALT (12 - 78 Units/L) 26 Alkaline Phosphatase (45 - 117 Units/L) 74 Troponin I High Sens (<54 ng/L) 4 3 Total Protein (6.4 - 8.2 gm/dL) 7.8 Albumin (3.4 - 5.0 gm/dL) 3.9 Globulin (2.0 - 3.5 gm/dL) 3.9 H Albumin/Globulin Ratio (1.0 - 2.3 ratio) 1.0 Hematology WBC (4.2 - 11.1 10 3/uL) 10.6 RBC (3.93 - 5.22 10 6/uL) 4.59 Hgb (11.2 - 15.7 g/dl) 12.1 Hct (34.1 - 44.9 %) 37.3 MCV (79.4 - 94.8 fL) 81.3 MCH (25.6 - 32.2 pg) 26.4 MCHC (32.2 - 35.5 g/dL) 32.4 RDW (11.7 - 14.4 %) 13.9 Plt Count (150 - 400 10 3/uL) 250 MPV (9.4 - 12.3 fl) 10.8Recent Impressions:RADIOLOGY - CHEST PORTABLE 11/03 1236 Report Impression - Status: SIGNED Entered: 11/04/2023 1424IMPRESSION:No radiographic evidence of acute cardiopulmonary disease.Impression By: JOSIE Hickey MDRe-Evaluation MDMFree Text MDM NotesAdditional TextCHEST X-RAY UNREMARKABLE LABORATORY FINDINGS UNREMARKABLE. TROPONIN NEGATIVE.WILL BE DISCHARGED HOME TO FOLLOW-UP WITH PCP FEELING BETTER FOLLOWING IVFLUIDS. WILL BE INSTRUCTED TAKE TYLENOL MOTRIN NEEDED FOR FEVER OR CHILLS.POSITIVE COVID OUTPATIENT PRIOR TO ARRIVALED CourseMedication(s) OrderedMedication(s) Ordered:Central Nervous System Agents Sig/Jane Start time Last Medication Dose Route Stop Time Status Admin Acetaminophen 650 MG X1ED STA 11/03 1335 DC 11/03 PO 11/03 1336 1355 Ibuprofen 600 MG X1ED STA 11/03 1334 DC / PO 11/03 1335 1355Electrolytic, Caloric, And Tristan Sig/Jane Start time Last Medication Dose Route Stop Time Status Admin Sodium Chloride 1,000 ML X1ED STA 11/03 1212 DC 11/03 IV 11/03 1312 1238Patient Discharge DepartureVital Signs/ConditionVital SignsFirst Documented: Result Date Time Pulse Ox 98 11/03 1209 B/P 173/91 11/03 1209 B/P Mean 118 11/03 1209 O2 Delivery Room air 11/03 1209 Temp 98.5 11/03 1209 Pulse 135 11/03 1209 Resp 18 11/03 1209Last Documented: Result Date Time Pulse 98 11/03 1405 Pulse Ox 95 11/03 1400 B/P 145/86 11/03 1400 B/P Mean 110 11/03 1400 Resp 19 11/03 1400 O2 Delivery Room air 11/03 1209 Temp 98.5 11/03 1209All vital signs available at the time of this entry have been reviewed.Condition Stable, ImprovedClinical ImpressionClinical ImpressionPrimary Impression: COVID-19Secondary Impressions: Viral syndromeTime of Impression 1432Disposition DecisionDischarge )( Discharged to Home Yes )( Time 1432 )( Date 11/04/23Discharge/Care Plan(Auto) PrescriptionsCurrent Visit ScriptsAlbuteroL HFA (Proair HFA) 1 PUFF INH Q6H PRN PRN Wheezing/SOB/Cough AlbuteroL HFA (Proair HFA) 1 PUFF INH Q6H PRN PRN Wheezing/SOB/Cough #8.5GRAMBenzonatate (Tessalon Perle) 200 MG PO TID PRN PRN COUGH 5 Days #15 CAPPrescriptions Reviewed Risks, BenefitsPatient Instructions COVID-19 Aftercare, ED URI, Viral, No Abx (Adult), ED ViralSyndrome (Adult)Additional InstructionsTAKE MEDICATIONS PRESCRIBED. FOLLOW-UP WITH PCP. RETURN TO THE ER IF ANYWORSENING SYMPTOMS OR ANY FURTHER PROBLEMS.Departure FormsRETURN TO WORK Discharge NoteI have spoken with the patient and/or caregivers. I have explained the patient'scondition, diagnoses and treatment plan based on the information available to meat this time. I have answered the patient's and/or caregiver's questions andaddressed any concerns. The patient and/or caregivers have as good anunderstanding of the patient's diagnosis, condition and treatment plan as can beexpected at this point. The vital signs have been stable. The patient'scondition is stable and appropriate for discharge from the emergency department.The patient will pursue further outpatient evaluation with the primary carephysician or other designated or consulting physician as outlined in thedischarge instructions. The patient and/or caregivers are agreeable to this planof care and follow-up instructions have been explained in detail. The patientand/or caregivers have received these instructions in written format and haveexpressed an understanding of the discharge instructions. The patient and/orcaregivers are aware that any significant change in condition or worsening ofsymptoms should prompt an immediate return to this or the closest emergencydepartment or a call to 911.RODRICK GONZALEZ. 11/06/23 1137:Patient Discharge DepartureDischarge/Care PlanReferralsProvider Referral: Undefined ProviderSupervising Physician Note MidLv Saw Pt AloneI WAS AVAILABLE FOR CONSULTATION NEEDED DURING THE PATIENT'S VISIT IN THEEMERGENCY DEPARTMENT. I DID NOT INTERVIEW OR EXAMINE PATIENT DURING THIS TIMEAND WAS NOT ACTIVELY INVOLVED IN CARE. at 1921 at 1138RPT#:[id number] OF REPORT Plan of Treatment TAKE MEDICATIONS PRESCRIBED. FOLLOW-UP WITH PCP. RETURN TO THE ER IF ANY WORSENING SYMPTOMS OR ANY FURTHER PROBLEMS. Future Tests Future scheduled test information is unavailable Pending Tests Pending diagnostic test information is unavailable Future Visits Future appointment information is unavailable Referrals to Other Providers Reason for Referral Referral Start Date Provider Provider Contact Information Provider Address Undefined Provider Future Procedures Future procedure information is unavailable Future Medications Future medication information is unavailable Patient Instructions Instruction Admit Date COVID-19 Aftercare November 04, 2023 11:08am ED Viral Syndrome (Adult) October 11:08am ED URI, Viral, No Abx (Adult) November 04, 2023 11:08am Assessments Diagnosis Onset Date Resolution Status Admit Date COVID-19 Active October 11:08am Viral syndrome Active November 04, 2023 11:08am
--- OUTSIDE RECORDS SUMMARY | 2024-05-19 07:44 | XMS_ITS | Encounter Summary ---
Author Organization [facility] Address [facility] [place] [address] Care Team Providers Care Branch Credit Counselor Name Role Phone Gaby Zuñiga MD Primary Care Provider [phone] Encounter Details Date Type Department Care Team (Late Contact Info) Description 10/15/2023 MyChart Message Enc [facility] Medical [facility] Multispec[facility] [place] - [address] [place] [address] Gaby Zuñiga MD [address] [place] [address] [address] [place] [address] Blood in stool Social History Tobacco Use Types Packs/Day [...] Sex Assigned at Female 04/11/2024 3:48 PM CHAIN OFFBEARER Legal Sex Female 10:25 AM CDT Gender Identity Female 04/11/2024 3:48 PM CHAIN OFFBEARER Sexual Orientation Straight 04/11/2024 3: 48 PM CHAIN OFFBEARER documented as of this encounter Plan of Treatment Upcoming Encounters Date Type Department Care Team (Late Contact Info) Description 10/10/2024 3:40 PM CDT Office Visit [facility] - [place] [address] [place] [address] [address] [place] [address] Gaby Zuñiga MD [address] [address] documented as of this encounter Visit Diagnoses Not on filedocumented in this encounter Additional Health Concerns Assessment Noted Time PHQ-9 Depression Total Score: 0 10/01/19 24 8:36 AM CDT documented as of this encounter Care Teams Branch Credit Counselor Relationship Specialty Start Date End Date Gaby Zuñiga MD [address] [address] PCP - General INTERNAL MEDICINE 07/11/22 documented as of this encounter
--- OUTSIDE RECORDS SUMMARY | 2024-05-19 07:44 | XMS_ITS | Clinical Summary ---
Author Organization [facility] Address [address] [place] [address] Care Team Providers Care Manager Epic Name Role Phone Gaby Zuñiga MD Primary Care Provider [phone] Allergies Active Allergy Reactions Criticality Noted Date Comments Fish Allergy Anaphylaxis High 01/30/2020 Iodine Anaphylaxis High 11/07/2018 Nuts Other (see comment) Low 01/08/2018 Itching of the tongue Povidone Iodine Anaphylaxis High 01/30/2020 Shellfish-Derived Products Anaphylaxis High 01/31/2020 Medications Multiple Vitamins-Minerals (ONCOVITE) Tab Take 1 tablet by mouth daily. Active probiotic (FLORAJEN3) Cap capsule Take 1 capsule by mouth 3 (three) times daily with meals. 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 2 each 4 5 Active escitalopram (LEXAPRO) 10 MG tabletIndications:M ild episode of recurrent major depressive disorder,LANCE (generalized anxiety disorder) Take 1 tablet (10 mg total) by mouth daily. 90 tablet 3 5 Active acetaZOLAMIDE (DIAMOX) 125 MG TabIndications:Alti tude sickness prophylaxis Take 1 tablet (125 mg total) by mouth 2 (two) times a day. start the day before ascent (preferred) or on the day of ascent (Ref) and if you will be staying for 2-4 days. 20 tablet 5 Active ondansetron (ZOFRAN-ODT) 4 MG disintegrating tabletIndications:A ltitude sickness prophylaxis Take 1 tablet (4 mg total) by mouth every 8 (eight) hours as needed for Nausea. 20 tablet Active Active Problems Problem Noted Date Diagnosed Date Depression 01/26/2023 Encounters Date Type Department Care Team Description 04/29/2024 MyChart Message [facility] [address] [facility] [address] [place] [address] Gaby Zuñiga MD Hard stool 04/11/2024 3:40 PM LIFEGUARD [facility] [address] [facility] [address] [place] [address] Gaby Zuñiga MD Follow Up (Discuss concerns about high altitude sickness); Depression; Anxiety; PCOS; Allergies 04/11/2024 Travel 03/05/2024 MyChart Message Enc [facility] [address] [place] [address] Gaby Zuñiga MD Increase libido from Last 3 Months Immunizations Name Administration Dates Next Due Dtp (Generic) 09/17/1990,1985 Fluzone 6 Months+ Quad (0.5 mL Prefilled Syringe) 01/26/2023 Hepatitis A (Havrix [address]) 01/13/2015,2014 Hepatitis B Pediatric 06/13/2014,08/07/2003,06/19 Hib (PedvaxHIB)3 Dose 06/20/1989 Influenza Adult (Generic) 12/06/2021,,12/02/2019,04/28,12/11/2017,01/13/2015,12/22/2013 ,11/27/2011,01/04/2011,01/24/2010,02/2006,11/20/2005,11/21/2004, 4 MMR (MMRII) 09/17/1990 Meningococcal (Menactra) 10/12/2003 PFIZER COVID-19 (ORIGINAL FO RMULATION, PURPLE CAP) mRNA, LNP-S, PF, 30 MCG/0.3 ML DOSE 01/14/2021,04/17/2020,03/22/2020 Polio Opv (Generic) 09/17/1990 Td (TDVAX) 07/17/2003 Tdap (Generic) 12/15/2021,11/17/2019,11/27/2011 Typhoid Oral (Vivotif) 06/23/2014 Family History Medical History Relation Comments Cancer Father Hypertension Father Other cancer Father Cancer Maternal Aunt Hypertension Mother Lupus Mother Obesity Mother Polycystic ovary syndrome Sister Relation Status Comments Father Alive duodenal cancer treated with surgery and doing well Maternal Aunt Alive Mother Alive Sister Alive Social History Tobacco Use Types Packs/Day Years Used Date Smoking Tobacco: Never Smokeless Tobacco: Never Tobacco Cessation:Counseling Given: Yes Comments:Counseled by Dr Zuñiga. Alcohol Use Standard Drinks/Week Comments Not Currently 0 (1 standard drink = 0.6 oz pur e alcohol) PHQ-2 Answer Date Recorded Patient Health Questionnaire-2 Score 0 04/11/2024 Comments No Sex and Gender Information Value Date Recorded Sex Assigned at Female 04/11/2024 3:48 PM LIFEGUARD Legal Sex Female 10:25 AM CDT Gender Identity Female 04/11/2024 3:48 PM LIFEGUARD Sexual Orientation Straight 04/11/2024 3: 48 PM LIFEGUARD Last Filed Vital Signs Vital Sign Reading Time Taken Comments Blood Pressure 134/80 04/11/2024 3:50 PM LIFEGUARD Pulse 101 04/11/2024 3:50 PM LIFEGUARD Temperature 35.8 C (96.4 F) 04/11/2024 3:50 PM LIFEGUARD Respiratory Rate 16 04/11/2024 3:50 PM LIFEGUARD Oxygen Saturation 100% 04/11/2024 3:50 PM LIFEGUARD Inhaled Oxygen Concentration - - Weight 74.6 kg (164 lb 6.4 oz) 04/11/2024 3:50 P M LIFEGUARD Height 182.9 cm (6') 04/11/2024 3:50 PM LIFEGUARD Body Mass Index 22.3 04/11/2024 3:50 PM LIFEGUARD Plan of Treatment Upcoming Encounters Date Type Department Care Team (Late st Contact Info) Description 10/10/2024 3:40 PM CDT Office Visit [facility] - [address] [place] [address] Gaby Zuñiga MD [address] [facility] [address] [place] [address] Health Maintenance Due Date Last Done Comments Cervical Cancer Screening Pap Smear (Age 30 to 64) Every 3 Years 1985 Hepatitis B Vaccines (3 of 3 - 3-dose series) 08/08/2014 06/13/2014, 08/07/2003, 07/07/2003 COVID-19 Vaccine ( season) 2023 01/06/2022, 01/14/2021, 04/17/2020, Additional history exists Annual Physical 09/30/2024 10/01/2023, 09/26/2022 Cervical Cancer Screening Pap with HPV Testing (Age 30 to 64) Every 5 Years 07/20/2027 07/19/2022 Cervical Cancer Screening with HPV 07/20/2027 DTaP, Tdap and Td Vaccines (7 - Td or Tdap) 12/16/2031 12/15/2021, 11/17/2019, 11/27/2011, Additional history exists Meningococcal Vaccine Completed 10/12/2003 Hepatitis C Completed 09/26/2022 PHQ-2 (Physician [place]) Completed 04/11/2024 HPV Vaccines Aged Out No longer eligi ble based on patient's age to complete this topic Meningococcal B Vaccine Aged Out No l onger eligible based on patient's age to complete this topic Pneumococcal Vaccine: Pediatrics (0 to 5 Years) and At-Risk Patients (6 to 64 Years) Aged Out No longer eligible based on patient's age to complete this topic RSV Immunizations Under 20 Months Aged Out No longer eligible based on patient's age to complete this topic Procedures Procedure Name Priority Date/Time Associated Diagnosis Comments HEPATITIS C ANTIBODY Routine 09/26/2022 10:59 AM CDT Annual physical exam Establishing care with new doctor, encounter for Routine general medical examination at a health care facility Encounter for hepatitis C screening test for low risk patient OUTSIDE CYTOPATH CERV/VAG INTERPRET (PAP) 07/19/2022 from Last 3 Months or Most Recently Relevant to Health Maintenance Results * HEPATITIS C ANTIBODY (09/26/2022 10:59 AM CDT) HEPATITIS C AB NON-REACTI VE NON-REACT GEO 09/26/2022 10:11 PM CDT [facility] Comment: ANTIBODIES TO HCV NOT DETECTED. DOES NOT EXCLUDE THE POSSIBILITY OF EXPOSURE TO HCV. 09/26/2022 10:5 9 AM CDT Gaby Zuñiga MD LABORATORY Final Result [facility] [address] [place] [address], [place] [phone] [id number] * PAP SMEAR WITH HPV (07/19/2022) 07/19/2022 [facility] Scanned SCANNING Final Resu lt from Last 3 Months or Most Recently Relevant to Health Maintenance Insurance Care Teams Manager Epic Relationship Specialty Start Date End Date Gaby Zuñiga MD [address] [facility] [address] [place] [address] PCP - General INTERNAL MEDICINE 07/11/22
--- OUTSIDE RECORDS SUMMARY | 2024-05-19 07:44 | XMS_ITS | Clinical Summary ---
Author Organization [facility] Address [address] [place] [address] Phone Care Team Providers Care Cut Out Stitcher Name Role Phone Provider, None Primary Care Provider Unavailabl e Allergies Active Allergy Reactions Criticality Noted Date Comments Povidone Iodine Anaphylaxis 01/30/2020 Fish Allergy Anaphylaxis 01/30/2020 Shellfish-Derived Products Anaphylaxis 01/31/20 20 Medications Uar-Aeq-HP-Fis h Oil ([facility] Gummy) 0.4-113.5 MG Chewable Tablet Take 1 Tab by mouth. Active ferrous sulfate 325 (65 Fe) MG Tablet Take 325 mg by mouth. Active Calcium Carbonate 500 MG Chewable Tablet Take by mouth. Activ e EPINEPHrine (EPIPEN) 0.3 MG/0.3ML Solution Auto-injector 0.3 mg by Intramuscular route. 8 Active sertraline (ZOLOFT) 25 MG Tablet Take 1 Tab by mouth daily. 30 Tab 0 Active metoclopramide (REGLAN) 5 MG Tablet Take 1 Tablet by mouth 4 times daily as needed for Nausea - 1st line or Vomiting. 30 Tablet 2 Active Active Problems Problem Noted Date Diagnosed Date examination following delive ry 02/04/2020 delivery delivered 02/04/2020 Heart palpitations 12/23/2019 Overview (02/04/2020): EKG with sinus arrhythmia Resolved Problems Problem Noted Date Diagnosed Date Resolved Date IUGR (intrauterine growth re striction) affecting care of mother 02/02/2020 02/04/2020 Immunizations Immunization Administration Dates Next Due Influenza Vaccine Nasal 12/02/2019 RHO D IG FULL DOSE 300 MCG IM 02/02/2020() TDAP Vaccine 11/17/2019 Social History Tobacco Use Types Packs/Day Years Used Date Smoking Tobacco: Never Smokeless Tobacco: Never Alcohol Use Standard Drinks/Week Comments Not Currently 0 (1 standard drink = 0.6 oz pur e alcohol) [place] Depression Scale Answer Date Recorded RETIRED [place] Depression Score 7 02/04/2020 Last EPDS Self Harm Result Not on file 02/03 Sexually Active Control Partners Comments Yes None Male Comments Unknown Sex and Gender Information Value Date Recorded Sex Assigned at Not on file 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 Gender Identity Not on file Sexual Orientation Not on file Last Filed Vital Signs Vital Sign Reading Time Taken Comments Blood Pressure 125/64 06/17/2021 11:40 PM CDT Pulse 84 06/17/2021 11:40 PM CDT Temperature 36.3 C (97.4 F) 06/17/2021 9:19 PM CDT Respiratory Rate 14 06/17/2021 11:40 PM CDT Oxygen Saturation 100% 06/17/2021 11:40 PM CDT Inhaled Oxygen Concentration - - Weight 65.3 kg (144 lb) 06/17/2021 9:19 PM CDT Height 185.4 cm (6' 1 ) 06/17/2021 9:19 PM CDT Body Mass Index 19 06/17/2021 9:19 PM CDT Plan of Treatment Health Maintenance Due Date Last Done Comments Hepatitis C Virus (HCV) Screening 1985 Influenza Immunization (#1) 10/21/202310/20, 12/02/2019, 04/29/2019, Additional history exists SARS-COV-2 Immunization ( season) 2023 01/14/2021, 04/17/2020, 03/22/2020 Respiratory Syncytial Virus (RSV) Immunization (Adult) (1 - 1-dose 75+ series) 2060 Meningococcal Immunization (ACWY) Aged Out 10/12/2003 No longer eligible based on patient's age to complete this topic Hepatitis B Immunization Completed 015, 08/07/2003, 07/07/2003 DTaP/Tdap/Td Immunization Discontinued 2019, 11/27/2011, 07/17/2003, Additional history exists Pneumococcal Immunization Combined Aged Out No longer eligible based on patient's age to complete this topic Rotavirus Immunization Aged Out No lo nger eligible based on patient's age to complete this topic Medical Devices Implanted Type Area Demand Planning Manager Device Identifier Shelf Expiration Date Model / Serial / Lot Barrier Adhesion 4x3in Abs Interceed Pelvis Strl - [id number] Implanted:Qty: 1 on 02/02/2020 by Vianca Mujica MD at [facility] IMPLANT [employer] 01/19/2024 [id number] / / [id number] Insurance [employer] Member Subscriber Plan / Payer ( fective 2019-Present) Name:Nicholas Stroud Relation to Subscriber:Spouse Name:TIMOTHY WAN Date of :1983 (Home) Address: [address] [place] [address] [place] [id number] Payer ID:[id number] (NAIC) Type:Not on file Address: [facility] [address] [place] [address] Advance Directives * Full Code (Latest Code Status on File) Date Activated Date Inactivated Comments 01/30/2020 6:43 PM 02/04/2020 6:58 PM CPR-Full T reatment: FULL ARREST: Attempt Resuscitation/CPR wit intubation and mechanical ventilation. PRE-ARREST: Use entire range of life support measures to stabilize the patient. Care Teams Cut Out Stitcher Relationship Specialty Start Date End Date Provider, None [place] PCP - General 01/06/20
--- NOTE | 2024-05-19 07:50 | ECG_ITS ---
Test Date: 2024-05-19 08:03:46 Measurements Intervals [place] Rate: 85 P: 66 TX: 163 QRS: 70 QRSD: 101 T: 32 QT: 372 QTc: 443 Interpretive Statements SINUS RHYTHM POSSIBLE EARLY REPOLARIZATION POSSIBLE LEFT VENTRICULAR HYPERTROPHY [VOLTAGE CRITERIA PLUS LAE OR QRS WIDENING] ABNORMAL ECG No previous ECG available for comparison Electronically Signed On 05-19-2024 14:00:22 CDT by Jose Eduardo Sen M.D.
[2024-05-19 08:25] LABS: Basophils Absolute Auto 0.1 K/mm3 (0.0-0.1); Basophils Percent Auto 1.5 % (0.2-1.2); Eosinophils Absolute Auto 0.4 K/mm3 (0-0.3); Eosinophils Percent Auto 8.6 % (0-4.4); Hematocrit 40.1 % (37.0-47.0); Hemoglobin 12.5 g/dL (12.0-15.0); Immature Granulocyte Absolute 0.05 K/mm3 (0.00-0.031); Immature Granulocyte Percent A 1.1 % (0-0.5); Lymphocytes Absolute Auto 1.76 K/mm3 (0.9-3.2); Lymphocytes Percent Auto 37.1 % (18.3-44.2); Mean Corpuscular HGB Conc 31.2 g/dl (32-36); Mean Corpuscular Hemoglobin 25.9 pg (26-34); Mean Corpuscular Volume 83.2 fl (80-100); Mean Platelet Volume 10.4 fl (7.4-10.4); Monocytes Absolute Auto 0.5 K/mm3 (0.1-0.6); Monocytes Percent Auto 9.7 % (2.6-8.5); Platelet Count Result 270 k/mm3 (150-375); Red Blood Count 4.82 M/mm3 (4.2-5.4); Red Cell Distribution Width 13.7 % (11.5-14.5); White Blood Count 4.7 K/mm3 (4.5-10.0)
[2024-05-19 08:47] LABS: Influenza A QL RT-PCR Negative (Negative); Influenza B QL RT-PCR Negative (Negative); RSV RNA, RT-PCR Negative (Negative); SARS-CoV-2 RNA PCR Negative (Negative)
[2024-05-19 08:50] LABS: Alanine Aminotransferase 40 U/L (6-35); Albumin Level 4.6 g/dL (3.5-5.1); Alkaline Phosphatase 77 U/L (38-126); Anion Gap 9 mmol/L (4-12); Aspartate Amino Transferase 31 U/L (14-36); Bilirubin,Total 0.3 mg/dL (0.2-1.3); Blood Urea Nitrogen 14 mg/dL (7-17); Calcium 9.2 mg/dL (8.4-10.2); Carbon Dioxide 28 mmol/L (22-30); Chloride 103 mmol/L (98-107); Estimated CRCL calculation 111 ml/min; Estimated Glomerular Filt Rate > 60; Glucose 101 mg/dL (65-110); Potassium 3.7 mmol/L (3.4-5.0); Sodium 140 mmol/L (137-145)
--- NOTE | 2024-05-19 09:18 | ED_ITS ---
HPI - Arrhythmia/Palpitations General Chief Complaint: Arrhythmia/Palpitations Stated Complaint: fast hr, dizzy Time Seen by Provider: 05/19/24 09:03 History of Present Illness HPI narrative: Patient is a 39-year-old female presents to the ER with complaints of palpitations that started this morning. She reports she started experiencing flu-like symptoms on , 5 days ago, which included congestion, headache, sinus pressure. This morning patient reports she started feeling like her ?heart was beating outside my chest. 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 She reports she had white coat syndrome so her primary care provider put her on Lexapro. Patient denies any medical history relevant to this ER visit. She denies any shortness of breath, recent fevers, wheezing, back pain, frequent caffeine use. Related Data Home Medications ?Medication ?Instructions ?Recorded ?Confirmed ?Last Taken ?Type escitalopram oxalate 10 mg tablet 10 mg PO DAILY 07/12/22 11/27/22 Unknown History Allergies Allergy/AdvReac Type Severity Reaction Status Date / Time iodine Allergy Anaphylaxis Verified 05/19/24 07:57 tree nut Allergy Itching Verified 05/19/24 07:57 seafood Allergy Severe Anaphylaxis Uncoded 05/19/24 07:57 Review of Systems 2 Review of Systems: All systems reviewed & are unremarkable except as noted in HPI and below PMFSH Past Medical History Medical History delivery delivered Anxiety Allergies Surgical History Surgical History History of Family History Family History Father Hypertension Cancer of duodenum Mother Hypertension Lupus Sibling Depression Anxiety Grandparent Anxiety Depression Breast cancer Malignant neoplasm of prostate Social History Social History Smoking status: Never smoker Alcohol intake: never Substance use: never Living arrangements: with family Gender identity (if verbalized by the patient): Female Sexual Orientation (if Verbalized by the Patient): Straight or Heterosexual Spiritual care concerns: No Exam 2 Narrative: GENERAL: Well appearing, well-nourished, non-toxic, in no acute distress. HEAD: Normocephalic, atraumatic. NECK: Supple. No adenopathy, no masses. RESPIRATORY: Airway patent, respirations nonlabored. Clear to auscultation bilaterally, no rales, rhonchi, wheezing. CARDIOVASCULAR: Irregular rate and rhythm without murmurs, rubs, or gallops. Peripheral pulses 2+ and equal bilaterally. ABDOMINAL: Soft, nontender, nondistended, no hepatosplenomegaly. Normoactive BS. MUSCULOSKELETAL: Moves all extremities. Strength/ROM intact without gross deformities. SKIN: Warm, dry, normal color. No rashes. NEURO: A&O X3. Speech clear. Cranial nerves II-XII intact. No ataxic movements. PSYCHIATRIC: Appropriate mood and affect. Normal interaction. Course Vital Signs Vital signs: Vital Signs Temperature 36.8 C 05/19/24 07:51 Pulse Rate 107 H 05/19/24 07:51 Respiratory Rate 14 05/19/24 07:51 Blood Pressure 146/97 H 05/19/24 07:51 Pulse Oximetry 100 05/19/24 07:51 Oxygen Delivery Room Air 05/19/24 07:51 Temperature 36.8 C 05/19/24 07:51 Pulse Rate 90 05/19/24 09:45 Respiratory Rate 19 05/19/24 09:45 Blood Pressure 136/92 H 05/19/24 09:45 Pulse Oximetry 98 05/19/24 09:45 Oxygen Delivery Room Air 05/19/24 08:09 MDM - Arrhythmia/Palpitations MDM Narrative Medical decision making narrative: Patient is a 39-year-old female presents to the ER with complaints of palpitations that started this morning. She reports she started experiencing flu-like symptoms on , 5 days ago, which included congestion, headache, sinus pressure. This morning patient reports she started feeling like her ?heart was beating outside my chest. 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 She reports she had white coat syndrome so her primary care provider put her on Lexapro. Patient denies any medical history relevant to this ER visit. She denies any shortness of breath, recent fevers, wheezing, back pain, frequent caffeine use. Labs Ordered: CBC, CMP, lipase, INR, PTT, troponin, D dimer, TSH, COVID/flu/RSV Imaging Ordered: Chest x-ray, outpatient Holter monitor Medications Ordered: 1 L normal saline IV bolus Results: Patient's chest x-ray indicates No acute cardiopulmonary disease. Diagnosis: Irregular heart rate, atypical chest pain Risks: HEART score: low risk HEART Score for Major Cardiac Events from [place] on 05/19/2024 All calculations should be rechecked by clinician prior to use RESULT SUMMARY: 1 points Low Score (0-3 points) Risk of MACE of 0.9-1.7%. INPUTS: History ?> 1 = Moderately suspicious EKG ?> 0 = Normal Age ?> 0 = <45 Risk factors ?> 0 = No known risk factors Initial troponin ?> 0 = <=Normal limit Consults: cardiology Patient Education/Shared MDM: Results of lab work and imaging shared with patient. She denies any new episodes a palpitations since she has been in the ER. Patient strongly advised to maintain hydration status upon discharge. She will be set up with a Holter monitor here in the ER and advised to follow-up with cardiology. She will be discharged home with no new prescriptions. Strict return precautions provided. Patient verbalized understanding is in agreement with plan. Vital signs stable at time of discharge. All questions answered. Differential Diagnosis Differential diagnosis: Likely palpitations, anxiety, sinus tachycardia, artial fibrillation, ventricular premature beats and supraventricular tachycardia Lab Data Attestation: I reviewed the patient's lab results. 05/19/24 08:21 05/19/24 08:21 Labs: Lab Results 05/19/24 05/19/24 05/19/24 Range/Units 08:04 08:21 09:25 WBC 4.7 (4.5-10.0) K/mm3 RBC 4.82 (4.2-5.4) M/mm3 Hgb 12.5 (12.0-15.0) g/dL Hct 40.1 (37.0-47.0) % MCV 83.2 (80-100) fl MCH 25.9 L (26-34) pg MCHC 31.2 L (32-36) g/dl RDW 13.7 (11.5-14.5) % Plt Count 270 (150-375) k/mm3 MPV 10.4 (7.4-10.4) fl Immature Gran % (Auto) 1.1 H (0-0.5) % Neut % (Auto) 42.0 L (45.5-73.1) % Lymph % (Auto) 37.1 (18.3-44.2) % Banks % (Auto) 9.7 H (2.6-8.5) % Eos % (Auto) 8.6 H (0-4.4) % Baso % (Auto) 1.5 H (0.2-1.2) % Lymph # (Auto) 1.76 (0.9-3.2) K/mm3 Banks # (Auto) 0.5 (0.1-0.6) K/mm3 Eos # (Auto) 0.4 H (0-0.3) K/mm3 Baso # (Auto) 0.1 (0.0-0.1) K/mm3 Abs Immat Gran (auto) 0.05 H (0.00-0.031) K/mm3 Absolute Neuts (auto) 2.0 (1.3-6.7) K/mm3 Absolute Nucleated RBC 0.000 (0.0-0.012) K/mm3 Nucleated RBC % 0.0 (0.0-0.2) % PT 12.8 (11.1-14.7) Seconds INR 0.9 APTT 29.7 (22.3-36.8) Seconds D-Dimer 0.28 (<0.48) ug/mL Sodium 140 (137-145) mmol/L Potassium 3.7 (3.4-5.0) mmol/L Chloride 103 (98-107) mmol/L Carbon Dioxide 28 (22-30) mmol/L Anion Gap 9 (4-12) mmol/L BUN 14 (7-17) mg/dL Creatinine 0.69 L (0.7-1.0) mg/dL Estim Creat Clear Calc 111 ml/min Estimated GFR > 60 (59 - ) Glucose 101 (65-110) mg/dL Calcium 9.2 (8.4-10.2) mg/dL Total Bilirubin 0.3 (0.2-1.3) mg/dL AST 31 (14-36) U/L ALT 40 H (6-35) U/L Alkaline Phosphatase 77 (38-126) U/L Troponin I < 0.012 (0.000-0.034) ng/mL Total Protein 8.0 (6.3-8.2) g/dL Albumin 4.6 (3.5-5.1) g/dL Lipase 65 (23-300) U/L TSH (Reflex) 4.000 (0.465-4.68) uIU/mL Free T4 0.90 (0.78-2.19) ng/dL Total T3 Pending Urine Color Yellow (Yellow) Urine Appearance Clear (Clear) Urine pH 5.5 (5.0-9.0) Ur Specific [place] 1.013 (1.001-1.035) Urine Protein Negative (Negative) mg/dL Urine Glucose (UA) Negative (Negative) mg/dL Urine Ketones Negative (Negative) mg/dL Ur Blood (Man) Negative (Negative) Urine Nitrate Negative (Negative) Urine Bilirubin Negative (Negative) Urine Urobilinogen 0.2 (<2.0) mg/dL Leukocyte Esterase Rfl Trace H (Negative) SHANNA/UL Urine RBC 0-2 (0-2) /hpf Urine WBC 0-5 (0-3) /hpf Ur Squamous Epith Cells Occasional (Few) /hpf Urine Bacteria Rare /hpf Urine Casts 0-2 POC Urine HCG, Qual (Negative) Influenza A (RT-PCR) Negative (Negative) Influenza B (RT-PCR) Negative (Negative) RSV (RT-PCR) Negative (Negative) SARS-CoV-2 RNA (RT-PCR) Negative (Negative) 05/19/24 05/19/24 Range/Units 09:29 11:36 WBC (4.5-10.0) K/mm3 RBC (4.2-5.4) M/mm3 Hgb (12.0-15.0) g/dL Hct (37.0-47.0) % MCV (80-100) fl MCH (26-34) pg MCHC (32-36) g/dl RDW (11.5-14.5) % Plt Count (150-375) k/mm3 MPV (7.4-10.4) fl Immature Gran % (Auto) (0-0.5) % Neut % (Auto) (45.5-73.1) % Lymph % (Auto) (18.3-44.2) % Banks % (Auto) (2.6-8.5) % Eos % (Auto) (0-4.4) % Baso % (Auto) (0.2-1.2) % Lymph # (Auto) (0.9-3.2) K/mm3 Banks # (Auto) (0.1-0.6) K/mm3 Eos # (Auto) (0-0.3) K/mm3 Baso # (Auto) (0.0-0.1) K/mm3 Abs Immat Gran (auto) (0.00-0.031) K/mm3 Absolute Neuts (auto) (1.3-6.7) K/mm3 Absolute Nucleated RBC (0.0-0.012) K/mm3 Nucleated RBC % (0.0-0.2) % PT (11.1-14.7) Seconds INR APTT (22.3-36.8) Seconds D-Dimer (<0.48) ug/mL Sodium (137-145) mmol/L Potassium (3.4-5.0) mmol/L Chloride (98-107) mmol/L Carbon Dioxide (22-30) mmol/L Anion Gap (4-12) mmol/L BUN (7-17) mg/dL Creatinine (0.7-1.0) mg/dL Estim Creat Clear Calc ml/min Estimated GFR (59 - ) Glucose (65-110) mg/dL Calcium (8.4-10.2) mg/dL Total Bilirubin (0.2-1.3) mg/dL AST (14-36) U/L ALT (6-35) U/L Alkaline Phosphatase (38-126) U/L Troponin I < 0.012 (0.000-0.034) ng/mL Total Protein (6.3-8.2) g/dL Albumin (3.5-5.1) g/dL Lipase (23-300) U/L TSH (Reflex) (0.465-4.68) uIU/mL Free T4 (0.78-2.19) ng/dL Total T3 Urine Color (Yellow) Urine Appearance (Clear) Urine pH (5.0-9.0) Ur Specific [place] (1.001-1.035) Urine Protein (Negative) mg/dL Urine Glucose (UA) (Negative) mg/dL Urine Ketones (Negative) mg/dL Ur Blood (Man) (Negative) Urine Nitrate (Negative) Urine Bilirubin (Negative) Urine Urobilinogen (<2.0) mg/dL Leukocyte Esterase Rfl (Negative) SHANNA/UL Urine RBC (0-2) /hpf Urine WBC (0-3) /hpf Ur Squamous Epith Cells (Few) /hpf Urine Bacteria /hpf Urine Casts POC Urine HCG, Qual Negative (Negative) Influenza A (RT-PCR) (Negative) Influenza B (RT-PCR) (Negative) RSV (RT-PCR) (Negative) SARS-CoV-2 RNA (RT-PCR) (Negative) Imaging Data Attestation: I personally reviewed and interpreted this imaging study as follows: Radiologist's impression: Impressions Chest X-Ray 05/19/24 10:38 IMPRESSION: 1. No acute cardiopulmonary disease. Discharge Plan Discharge Clinical Impression: Palpitations, Upper respiratory infection, Irregular heart beat Patient Disposition: Home, Self-Care Condition: Stable Instructions: Antibiotic Form Additional Instructions: Please return to the ER with any worsening symptoms. Call Cardiology to set up a follow-up appointment. Take all regularly scheduled medications as prescribed. Patient Language: Malian Prescriptions: No Action escitalopram oxalate 10 mg tablet 10 mg PO DAILY prednisone 20 mg tablet 40 mg PO DAILY 5 Days Qty: 10 0RF Follow-up/Referrals: Tai Andrade MD [Physician] - (cardiology) Yogesh,MD Gaby [Primary Care Provider] - Stand Alone Forms: Work/School Release IP Time of Disposition: 12:07
[2024-05-19 09:32] LABS: BEDSIDEPREGUCG Negative (Negative)
[2024-05-19 09:37] LABS: Add Urine Microscopic? YES; Appearance Urine Clear (Clear); Bacteria Urine Rare /hpf; Bilirubin Urine Negative (Negative); Blood Urine Negative (Negative); Color Urine Yellow (Yellow); Glucose Urine UA Negative (Negative); Ketones Urine Negative (Negative); Leukocyte Esterase Ur Trace LEU/UL (Negative); Nitrate Urine Negative (Negative); Non Pathogenic Casts 0-2; Protein Urine Negative (Negative); RBC Urine 0-2 /hpf (0-2); Specific Grav Ur 1.013 (1.001-1.035); Squamous Epithelial Cell Urine Occasional /hpf (Few); Urobilinogen Urine 0.2 mg/dL (<2.0); WBC Urine 0-5 /hpf (0-3); pH Urine 5.5 (5.0-9.0)
[2024-05-19 09:43] LABS: Lipase 65 U/L (23-300)
[2024-05-19 09:48] LABS: INR 0.9; Prothrombin Time 12.8 Seconds (11.1-14.7)
[2024-05-19 09:49] LABS: Partial Thromboplastin Time 29.7 Seconds (22.3-36.8)
[2024-05-19 09:53] LABS: D Dimer 0.28 ug/mL (<0.48)
[2024-05-19] MEDS: SODIUM CHLORIDE 0.9% IV 1,000 ML 999 ML IV CONT (09:54)
[2024-05-19 09:56] LABS: Troponin I < 0.012 ng/mL (0.000-0.034)
--- OUTSIDE RECORDS SUMMARY | 2024-05-19 11:10 | XMS_ITS | Encounter Summary ---
Author Organization [facility] Address [facility] access hospital[address] [place] [address] Care Team Providers Care Stock Handler Floorperson Name Role Phone Gaby Zuñiga MD Primary Care Provider [phone] Encounter Details Date Type Department Care Team (Late Contact Info) Description 10/15/2023 MyChart Message Enc [facility] Medical [facility] Multispecialty [facility] - [address] [place] [address] Gaby Zuñiga MD [address] [place] [address] [address] [place] [address] Blood in stool Social History Tobacco Use [...] Sex Assigned at Female 04/11/2024 3:48 PM MINK SLICER Legal Sex Female 10:25 AM CDT Gender Identity Female 04/11/2024 3:48 PM MINK SLICER Sexual Orientation Straight 04/11/2024 3: 48 PM MINK SLICER documented as of this encounter Plan of Treatment Upcoming Encounters Date Type Department Care Team (Late Contact Info) Description 10/10/2024 3:40 PM CDT Office Visit [facility] Medical [facility] Multispecialty Care - [place] [address] [place] [address] [address] [place] [address] Gaby Zuñiga MD [address] [address] documented as of this encounter Visit Diagnoses Not on filedocumented in this encounter Additional Health Concerns Assessment Noted Time PHQ-9 Depression Total Score: 0 10/01/19 24 8:36 AM CDT documented as of this encounter Care Teams Stock Handler Floorperson Relationship Specialty Start Date End Date Gaby Zuñiga MD [address] [address] PCP - General INTERNAL MEDICINE 07/11/22 documented as of this encounter
--- OUTSIDE RECORDS SUMMARY | 2024-05-19 11:10 | XMS_ITS | Clinical Summary ---
Author Organization [facility] Address [address] [place] [address] Care Team Providers Care Research Professor Of Biostatistics Name Role Phone Gaby Zuñiga MD Primary Care Provider [phone] Allergies Active Allergy Reactions Criticality Noted Date [...] Care Team Description 04/29/2024 [facility] [place] [address] [address] [facility] [address] [place] [address] Gaby Zuñiga MD Hard stool 04/11/2024 3:40 PM LINUX SERVER ADMINISTRATOR [facility] [place] [address] [address] [facility] [address] [place] [address] Gaby Zuñiga MD Follow Up (Discuss concerns about high altitude sickness); Depression; Anxiety; PCOS; Allergies 04/11/2024 Travel 03/05/2024 MyChart Message [facility] [place] [address] [place] [address] Gaby Zuñiga MD Increase libido from Last [...] Sex Assigned at Female 04/11/2024 3:48 PM LINUX SERVER ADMINISTRATOR Legal Sex Female 10:25 AM CDT Gender Identity Female 04/11/2024 3:48 PM LINUX SERVER ADMINISTRATOR Sexual Orientation Straight 04/11/2024 3: 48 PM LINUX SERVER ADMINISTRATOR Last Filed Vital Signs Vital Sign Reading Time Taken Comments Blood Pressure 134/80 04/11/2024 3:50 PM LINUX SERVER ADMINISTRATOR Pulse 101 04/11/2024 3:50 PM LINUX SERVER ADMINISTRATOR Temperature 35.8 C (96.4 F) 04/11/2024 3:50 PM LINUX SERVER ADMINISTRATOR Respiratory Rate 16 04/11/2024 3:50 PM LINUX SERVER ADMINISTRATOR Oxygen Saturation 100% 04/11/2024 3:50 PM LINUX SERVER ADMINISTRATOR Inhaled Oxygen Concentration - - Weight 74.6 kg (164 lb 6.4 oz) 04/11/2024 3:50 P M LINUX SERVER ADMINISTRATOR Height 182.9 cm (6') 04/11/2024 3:50 PM LINUX SERVER ADMINISTRATOR Body Mass Index 22.3 04/11/2024 3:50 PM LINUX SERVER ADMINISTRATOR Plan of Treatment Upcoming Encounters Date Type Department Care Team (Late st Contact Info) Description 10/10/2024 3:40 PM CDT Office Visit [facility] Multispecialty Care - [address] [place] [address] Gaby Zuñiga MD [address] [facility] [address] [place] [address] Health Maintenance Due Date Last Done Comments [...] 10/12/2003 Hepatitis C Completed 09/26/2022 PHQ-2 (Physician [place]) Completed 04/11/2024 HPV Vaccines Aged Out No [...] VE NON-REACT GEO 09/26/2022 10:[address] [facility] Comment: ANTIBODIES TO HCV NOT DETECTED. DOES NOT EXCLUDE THE POSSIBILITY OF EXPOSURE TO HCV. 09/26/2022 10:5 9 AM CDT Gaby Zuñiga MD LABORATORY Final Result [facility] [address] [place] [address], [place] [phone] * PAP SMEAR WITH HPV (07/19/2022) 07/19/2022 us Doc Med Group Scanned SCANNING Final Resu lt from Last 3 Months or Most Recently Relevant to Health Maintenance Insurance Care Teams Research Professor Of Biostatistics Relationship Specialty Start Date End Date Gaby Zuñiga MD [address] [facility] [address] [place] [address] PCP - General INTERNAL MEDICINE 07/11/22
--- OUTSIDE RECORDS SUMMARY | 2024-05-19 11:10 | XMS_ITS | Clinical Summary ---
Author Organization [facility] Address [address] [place] [address] Phone Care Team Providers Care Spring Assembler Supervisor Name Role Phone Provider, None Primary Care Provider Unavailabl e Allergies Active Allergy Reactions Criticality Noted Date Comments Povidone Iodine Anaphylaxis 01/30/2020 Fish Allergy Anaphylaxis 01/30/2020 Shellfish-Derived Products Anaphylaxis 01/31/20 20 Medications Idi-Ovj-UZ-Fis h Oil ([facility]) 0.4-113.5 MG Chewable [...] drink = 0.6 oz pur e alcohol) Nome Depression Scale Answer Date Recorded RETIRED Nome Depression Score 7 02/04/2020 Last EPDS Self Harm Result Not on file 02/03 Sexually Active Control Partners Comments Yes None Male Comments Unknown Sex and Gender Information Value Date Recorded Sex Assigned at Not on file Legal Sex Female 10:28 AM HYDROGENATION STILL OPERATOR Gender Identity Not on file Sexual Orientation [...] this topic Medical Devices Implanted Type Area Structural Steel Engineer Device Identifier Shelf Expiration Date Model / Serial / Lot Barrier Adhesion 4x3in Abs Interceed Pelvis Strl - [id number] Implanted:Qty: 1 on 02/02/2020 by Vianca Mujica MD at [facility] IMPLANT [employer] 01/19/2024 [id number] / / [id number] Insurance [employer] Member Subscriber Plan / Payer ( fective 2019-Present) Name:Nihcolas Stroud Relation to Subscriber:Spouse Name:TIMOTHY WAN Date of :1983 (Home) Address: [address] [place] [address] [place] [id number] Payer ID:[id number] (NAIC) Type:Not on file Address: [facility] [address] [place] [address] Advance Directives * Full Code (Latest Code Status on File) Date Activated Date Inactivated Comments 01/30/2020 6:43 PM 02/04/2020 6:58 PM CPR-Full T reatment: FULL ARREST: Attempt Resuscitation/CPR wit intubation and mechanical ventilation. PRE-ARREST: Use entire range of life support measures to stabilize the patient. Care Teams Spring Assembler Supervisor Relationship Specialty Start Date End Date Provider, None [place] PCP - General 01/06/20
--- OUTSIDE RECORDS SUMMARY | 2024-05-19 11:10 | XMS_ITS | Clinical Summary ---
Author Organization [facility] Address [address] [place] [address] Care Team Providers Care Shank Rander Name Role Phone Gaby Zuñiga MD Primary Care Provider [phone] Source Comments [facility],non-owned Affiliates and Associated Physician Practices is amultiple site organization consisting of ambulatory clinics and hospital sitesin [place], [place], [place] and [place]. This disclosure is being madepursuant to the Care Everywhere program and may not contain all information available regarding this patient. Last updated 17.[facility] Allergies No known active allergies Medications * [...] age to complete this topic Care Teams Shank Rander Relationship Specialty Start Date End Date Gaby Zuñiga MD [address] [facility] [address] [place] [address] PCP - General Internal Medicine 09/26/23
--- OUTSIDE RECORDS SUMMARY | 2024-05-19 11:10 | XMS_ITS | Encounter Summary ---
Author Organization [facility] Address Critical access hospital[address] [place] [address] Care Team Providers Care Nuclear Scientist Name Role Phone Gaby Zuñiga MD Primary Care Provider Encounter Details Date Type Department Care Team (Late Contact Info) Description 03/05/2024 MyChart Message Enc [facility] Medical [facility] Multispecialty [facility] - [address] [place] [address] Gaby Zuñiga MD [address] [place] [address] [address] [place], [place] [id number] Increase libido Social History Tobacco Use Types [...] Sex Assigned at Female 04/11/2024 3:48 PM CONSTRUCTION SERVICES TECHNICIAN Legal Sex Female 10:25 AM CDT Gender Identity Female 04/11/2024 3:48 PM CONSTRUCTION SERVICES TECHNICIAN Sexual Orientation Straight 04/11/2024 3: 48 PM CONSTRUCTION SERVICES TECHNICIAN documented as of this encounter Plan of Treatment Upcoming Encounters Date Type Department Care Team (Late Contact Info) Description 10/10/2024 3:40 PM CDT Office Visit [facility] Medical [facility] Multispecialty Care - [place] [address] [place] [address] [address] [place], [place] [address] Gaby Zuñiga MD [address] [address] documented as of this encounter Visit Diagnoses Not on filedocumented in this encounter Additional Health Concerns Assessment Noted Time PHQ-9 Depression Total Score: 0 10/01/19 24 8:36 AM CDT documented as of this encounter Care Teams Nuclear Scientist Relationship Specialty Start Date End Date Gaby Zuñiga MD [address] [address] PCP - General INTERNAL MEDICINE 07/11/22 documented as of this encounter
--- OUTSIDE RECORDS SUMMARY | 2024-05-19 11:10 | XMS_ITS | Encounter Summary ---
Author Organization [facility] Address [facility] [place] [address] Care Team Providers Care Order Picker Name Role Phone Gaby Zuñiga MD Primary Care Provider [phone] Encounter Details Date Type Department Care Team (Late Contact Info) Description 04/29/2024 [facility] - [address] [place] [address] Gaby Zuñiga MD [address] [place] [address] [address] [place] [address] Hard stool Social History Tobacco Use Types [...] Sex Assigned at Female 04/11/2024 3:48 PM DATA MANAGEMENT SPECIALIST Legal Sex Female 10:25 AM CDT Gender Identity Female 04/11/2024 3:48 PM DATA MANAGEMENT SPECIALIST Sexual Orientation Straight 04/11/2024 3: 48 PM DATA MANAGEMENT SPECIALIST documented as of this encounter Plan of Treatment Upcoming Encounters Date Type Department Care Team (Late Contact Info) Description 10/10/2024 3:40 PM CDT Office Visit [facility] Medical [facility] Multispecialty [facility] - [address] [place] [address] Gaby Zuñiga MD [address] [address] documented as of this encounter Visit Diagnoses Not on filedocumented in this encounter Additional Health Concerns Assessment Noted Time PHQ-9 Depression Total Score: 2 04/11/19 25 4:23 PM DATA MANAGEMENT SPECIALIST documented as of this encounter Care Teams Order Picker Relationship Specialty Start Date End Date Gaby Zuñiga MD [address] [address] PCP - General INTERNAL MEDICINE 07/11/22 documented as of this encounter
--- NOTE | 2024-05-19 11:37 | ECG_ITS ---
Test Date: 2024-05-19 11:46:01 Measurements Intervals Grant Rate: 71 P: 71 IA: 176 QRS: 71 QRSD: 98 T: 34 QT: 384 QTc: 418 Interpretive Statements SINUS RHYTHM POSSIBLE LEFT VENTRICULAR HYPERTROPHY [VOLTAGE CRITERIA PLUS LAE OR QRS WIDENING] ABNORMAL ECG Electronically Signed On 05-19-2024 14:05:15 CDT by Jose Eduardo Sen M.D.
[2024-05-19 12:40] LABS: Troponin I < 0.012 ng/mL (0.000-0.034)
[2024-05-19 13:40] LABS: Total Triiodothyronine (T3) 1.28 NG/ML (0.97-1.69)
== END 2024-05-19 12:58 | disposition home or self-care (01) ==
PROVIDERS: Student in an Organized Health Care Education/Training Program; Emergency Provider Registered Nurse; PCP Internal Medicine
DX: J06.9 Acute upper respiratory infection, unspecified (principal); I49.9 Cardiac arrhythmia, unspecified; R00.2 Palpitations; Z20.822 Contact with and (suspected) exposure to COVID-19; F41.9 Anxiety disorder, unspecified; R94.31 Abnormal electrocardiogram [ECG] [EKG]; Z79.899 Other long term (current) drug therapy
CPT/HCPCS: 36415; 71046; 80053; 81001; 81025; 83690; 84439; 84443; 84480; 84484; 85025; 85380; 85610; 85730; 87637; 93005; 93242; 96360; 99284; J7030

== ENCOUNTER 2024-11-12 08:00 | Outpatient (CLI) | payer BC, SELFPAY ==
--- NOTE | ~2024-11-12 | MMUS_ITS ---
EXAMINATION: MM diagnostic fransico BI w jeovany, US breast RT limited INDICATION: 39-year old female; felt a lump in the medial right breast 6 months ago but cannot locate the lump today. In addition a right axillary lump was felt at clinical examination. COMPARISON: 09/25/2023 TECHNIQUE: Digital breast tomosynthesis CC and MLO views of the BILATERAL breast and True lateral of the BILATERAL breast were obtained with computer-aided detection to assist in interpretation of the study. MAMMOGRAM FINDINGS: The breasts are heterogeneously dense, which may obscure small masses. There are no suspicious masses, calcifications, architectural distortion or any other abnormality in either breast. No suspicious mammographic abnormality correlates to the area of palpable lump in the medial right breast and in the right axilla. RIGHT BREAST ULTRASOUND FINDINGS: Targeted evaluation of the medial right breast and right axilla was completed. There is no sonographic abnormality that correlates to the area of palpable lumps in the medial right breast and right axilla. IMPRESSION: NO MAMMOGRAPHIC OR SONOGRAPHIC FINDING CORRELATES TO THE PALPABLE LUMP AREAS IN THE RIGHT BREAST AND RIGHT AXILLA. FURTHER EVALUATION OF PATIENT'S PALPABLE LUMP SHOULD BE BASED ON CLINICAL IMPRESSION. FOLLOW-UP CLINICALLY WARRANTED. NO MAMMOGRAPHIC EVIDENCE OF MALIGNANCY IN EITHER BREAST. BI-RADS 1, NEGATIVE Reviewed, dictated and finalized at location C. IMPRESSION: NO MAMMOGRAPHIC OR SONOGRAPHIC FINDING CORRELATES TO THE PALPABLE LUMP AREAS IN THE RIGHT BREAST AND RIGHT AXILLA. FURTHER EVALUATION OF PATIENT'S PALPABLE LATESHA MP SHOULD BE BASED ON CLINICAL IMPRESSION. FOLLOW-UP CLINICALLY WARRANTED. NO MAMMOGRAPHIC EVIDENCE OF MALIGNANCY IN EITHER BREAST. BI-RADS 1, NEGATIVE
== END 2024-11-12 08:01 | disposition home or self-care (01) ==
LOC: MICIMG 08:00
PROVIDERS: PCP Internal Medicine; Visit Provider Obstetrics & Gynecology
DX: N63.10 Unspecified lump in the right breast, unspecified quadrant (principal)
CPT/HCPCS: 76642; 77062; 77066; G0279